=== PATIENT | female | born 1995 | race Caucasian/White ===

== ENCOUNTER 2017-07-11 06:31 | Day surgery (SDC) | payer OTHER ==
[~2017-07-11] VITALS: Ht 165.1 cm; Wt 88.5 kg
[2017-07-11] MEDS ORDERED: CEFAZOLIN 1 GM IVPB PREMIX 50 ML IV ONE (07:00)
[2017-07-11] MEDS ORDERED: LR 1,000 ML IV SCH (09:52)
[2017-07-11] MEDS ORDERED: MEPERIDINE HCL/PF 50 MG/ML AMP IVP PRN ×2 (10:00)
[2017-07-11] MEDS ORDERED: MEPERIDINE HCL/PF 25 MG/ML DISP.SYRIN IVP PRN (10:00)
[2017-07-11] MEDS ORDERED: METOCLOPRAMIDE HCL 10 MG/2 ML VIAL IVP PRN (10:00)
[2017-07-11] MEDS ORDERED: fentaNYL CITRATE 250 MCG/5 ML AMP IV ONE (10:50)
[2017-07-11] MEDS ORDERED: SEVOFLURANE 15 MIN GAS INH ONE (10:50)
[2017-07-11] MEDS ORDERED: VECURONIUM BROMIDE 10 MG/VIAL (NORCURON) IV ONE (10:50)
[2017-07-11] MEDS ORDERED: MIDAZOLAM HCL 5 MG/ML VIAL (VERSED) IV ONE (10:50)
[2017-07-11] MEDS ORDERED: PROPOFOL 200MG/ 20ML VIAL (DIPRIVAN) IV ONE (10:50)
[2017-07-11] MEDS ORDERED: NS 1000 ML BAG IV ONE (10:50)
[2017-07-11] MEDS ORDERED: ONDANSETRON HCL 4 MG/2 ML VIAL IVP ONE (10:50)
[2017-07-11] MEDS ORDERED: LR 1,000 ML IV.SOLN IV ONE (10:50)
[2017-07-11 13:16] VITALS: BP_SYST 113
== END 2017-07-11 12:35 | disposition home or self-care (01) ==
LOC: SDS 06:31 → SMU 06:32 → SDS 12:35
PROVIDERS: ATTEND Otolaryngology
DX: L72.0 Epidermal cyst (principal); L08.9 Local infection of the skin and subcutaneous tissue, unspecified; Z87.81 Personal history of (healed) traumatic fracture
CPT/HCPCS: 11443; 87070; 87075; 88304; J0690; J2250; J2405; J2704; J3010; J3490; J7030; J7120